=== PATIENT | female | born 1940 | race Caucasian/White ===

== ENCOUNTER → 2017-03-16 | Outpatient (CLI) | payer MEDICARE ==
[~2017-03-16] MED LIST: MEDROL 4MG. DOSE4 MG PO; PERCOCET 5/3251 EACH PO
[2017-03-16 11:13] LABS: BUN 8 mg/dL (7-18)
[2017-03-16 11:19] LABS: GFR (ESTIMATED) 61 ML/MIN (59-)
== END ==
LOC: LAB 08:11
PROVIDERS: Nurse Practitioner Family
DX: I10 Essential (primary) hypertension (principal); E78.5 Hyperlipidemia, unspecified; E03.9 Hypothyroidism, unspecified